=== PATIENT | female | born 1945 | race Caucasian/White ===

== ENCOUNTER 2016-11-03 20:51 | Observation (INO) | payer MEDICARE ==
[2016-11-03] MEDS ORDERED: Glucagon,Human Recombinant 1 MG Vial IM ONE (21:42)
[2016-11-03] MEDS ORDERED: Sodium Chloride 0.9% 10 ML Syringe FLUSH PRN (21:42)
[2016-11-03] MEDS ORDERED: Glucagon,Human Recombinant 1 MG Vial IV PRN ×2 (21:43→21:46)
[2016-11-03] MEDS ORDERED: Sodium Chloride 0.9% 1,000 ML IV SCH (22:00)
[2016-11-03] MEDS ORDERED: LORazepam 2 MG/ML MDV IVPUSH ONE (23:15)
--- NOTE | 2016-11-03 23:27 | EDM.PDOC ---
ED HPI GENERAL MEDICAL PROBLEM - General Chief Complaint: Gastrointestinal Problem Stated Complaint: FOOD STUCK IN THROAT Time Seen by Provider: 11/03/16 21:31 Source of Information: Reports: Patient History Limitations: Reports: No Limitations - History of Present Illness INITIAL COMMENTS - FREE TEXT/NARRATIVE: food stuck in throat; this is a 71 year old female presents to ER with her . Mrs. Rodríguez reports was eating steak and toast this evening, when a piece of steak got caught in her throat. She had about 2 hours of hard vomiting , feels like it is partially discharged the food, but feels like it is stuck in bottom of her throat. She is having frequent burps, throat pain and anxiety. past hx of food obstruction, last event 2 years ago reports increase choking on foods the past two months. Onset: Sudden Duration: Hour(s): Location: Reports: Neck, Abdomen Quality: Reports: Same as Previous Episode Improves with: Reports: None Worsens with: Reports: Eating Associated Symptoms: Reports: Nausea/Vomiting Epigastric Pain Score (Numeric/FACES): 8 - Related Data Allergies Allergy/AdvReac Type Severity Reaction Status Date / Time acetaminophen [From Percocet] Allergy Itching Verified 11/03/16 21:10 codeine Allergy Itching Verified 11/03/16 21:10 indomethacin [From Indocin] Allergy Itching Verified 11/03/16 21:10 indomethacin sodium Allergy Itching Verified 11/03/16 21:10 [From Indocin] morphine Allergy Other Verified 11/03/16 21:10 propoxyphene napsylate Allergy Itching Verified 11/03/16 21:10 [From Darvon-N] oxycodone HCl [From Percocet] AdvReac Confusion Verified 11/03/16 21:10 tape AdvReac Blisters Uncoded 07/01/15 08:26 Home Meds: Home Meds Cyclobenzaprine [Flexeril] 10 mg PO BEDTIME PRN 04/21/13 [History] Omeprazole [Prilosec] 40 mg PO DAILY 04/21/13 [History] SUMAtriptan [Imitrex] 50 mg PO ASDIRECTED PRN 04/21/13 [History] Losartan [Cozaar] 50 mg PO DAILY 07/22/14 [History] Calcium Citrate 500 mg PO BID #60 tablet 07/24/14 [Rx] Cholecalciferol (Vitamin D3) [Vitamin D3] 1,000 unit PO DAILY 08/08/14 [History] Multivitamin with Minerals [Multiple Vitamin] 1 tab PO DAILY 08/08/14 [History] 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] 10 mg PO ASDIRECTED PRN 12/04/14 [History] Past Medical History HEENT History: Reports: Impaired Vision Cardiovascular History: Reports: Hypertension Gastrointestinal History: Reports: Chronic Constipation, GERD, Other (See Below) Other Gastrointestinal History: gastric ulcer Genitourinary History: Reports: UTI, Recurrent 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: 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: Musculoskeletal History: Reports: Arthritis, Neck Pain, Chronic, Other (See Below) Other Musculoskeletal History: back surgery Neurological History: Reports: Headaches, Chronic, Migraines Other Dermatologic History: open and draining on abdomen - Infectious Disease History Infectious Disease History: Reports: Chicken Pox, Measles - Past Surgical History HEENT Surgical History: Reports: Cataract Surgery GI Surgical History: Reports: Cholecystectomy, Other (See Below) Endocrine Surgical History: Reports: Other (See Below) Neurological Surgical History: Reports: Other (See Below) Musculoskeletal Surgical History: Reports: Knee Replacement Social & Family History - Tobacco Use Smoking Status *Q: Current Status Unknown Second Hand Smoke Exposure: No - Caffeine Use Caffeine Use: Reports: Coffee - Alcohol Use Days Per Week of Alcohol Use: 0 - Recreational Drug Use Recreational Drug Use: No - Living Situation & Occupation Living situation: Reports: (lives with in [place], [place].) ED ROS GENERAL - Review of Systems Review Of Systems: See Below Constitutional: Reports: No Symptoms HEENT: Reports: Throat Pain Respiratory: Reports: No Symptoms Cardiovascular: Reports: No Symptoms Endocrine: Reports: No Symptoms GI/Abdominal: Reports: Abdominal Pain (choking event), Difficulty Swallowing ( partial food obstruction) : Reports: No Symptoms Musculoskeletal: Reports: No Symptoms Skin: Reports: No Symptoms Neurological: Reports: No Symptoms Psychiatric: Reports: Anxiety Hematologic/Lymphatic: Reports: No Symptoms Immunologic: Reports: No Symptoms ED EXAM, GI/ABD - Physical Exam Exam: See Below Exam Limited By: No Limitations General Appearance: Alert, WD/WN, No Apparent Distress Eyes: Bilateral: Normal Appearance Ears: Normal External Exam Nose: Normal Inspection Throat/Mouth: Normal Inspection, Normal Lips, Normal Teeth, Normal Gums, Normal Oropharynx, Normal Voice, No Airway Compromise Head: Atraumatic, Normocephalic Neck: Normal Inspection, Supple, Non-Tender, Full Range of Motion Respiratory/Chest: No Respiratory Distress, Lungs Clear, Normal Breath Sounds, No Accessory Muscle Use, Chest Non-Tender Cardiovascular: Regular Rate, Rhythm, No Murmur GI/Abdominal: Normal Bowel Sounds, Soft, Tenderness (epigastric area) (Female) Exam: Deferred Rectal (Female) Exam: Deferred Back Exam: Normal Inspection Extremities: Normal Inspection, Normal Range of Motion, Non-Tender, No Pedal Edema Neurological: Alert, Oriented, CN II-XII Intact, Normal Cognition, Normal Gait, Normal Reflexes, No Motor/Sensory Deficits Psychiatric: Normal Affect, Normal Mood Skin Exam: Warm, Dry, Intact, Normal Color, No Rash Lymphatic: No Adenopathy Course - Vital Signs Last Recorded V/S: Last Vital Signs Temp 37.4 C 11/03/16 21:06 Pulse 68 11/03/16 22:11 Resp 17 11/03/16 22:11 BP 187/101 H 11/03/16 22:11 Pulse Ox 95 11/03/16 22:11 - Orders/Labs/Meds Orders: Active Orders 24 hr Category Date Time Status Patient Status Manage Transfer [TRANSFER] Routine ADT 11/03/16 22:57 Active Sodium Chloride 0.9% [Normal Saline] 1,000 ml Med 11/03/16 22:00 Active IV ASDIRECTED Sodium Chloride 0.9% [Saline Flush] Med 11/03/16 21:42 Active 10 ml FLUSH ASDIRECTED PRN Saline Lock Insert [OM.PC] Routine Oth 11/03/16 21:42 Ordered Resuscitation Status Routine Resus Stat 11/03/16 23:04 Ordered Medication Orders Sodium Chloride (Normal Saline) 1,000 mls @ 250 mls/hr IV ASDIRECTED JORGE LUIS Last Admin: 11/03/16 21:52 Dose: 250 mls/hr Sodium Chloride (Saline Flush) 10 ml FLUSH ASDIRECTED PRN PRN Reason: Keep Vein Open Last Admin: 11/03/16 22:02 Dose: 10 ml Meds: Medications Generic Name Dose Route Start Last Admin Trade Name Freq PRN Reason Stop Dose Admin Sodium Chloride 1,000 mls @ 250 mls/hr 11/03/16 22:00 11/03/16 21:52 Normal Saline IV 250 mls/hr ASDIRECTED JORGE LUIS Administration Sodium Chloride 10 ml 11/03/16 21:42 11/03/16 22:02 Saline Flush FLUSH 10 ml ASDIRECTED PRN Administration Keep Vein Open Discontinued Medications Generic Name Dose Route Start Last Admin Trade Name Freq PRN Reason Stop Dose Admin Glucagon 1 mg 11/03/16 21:42 11/03/16 22:08 Glucagen IM 11/03/16 21:43 Not Given ONETIME ONE Glucagon 1 mg 11/03/16 21:43 11/03/16 22:03 Glucagen IV 11/03/16 21:44 1 mg ONETIME PRN Administration Abdominal Pain Glucagon 1 mg 11/03/16 21:46 Glucagen IV 11/03/16 21:47 ONETIME PRN Other Lorazepam 1 mg 11/03/16 23:15 Ativan IVPUSH 11/03/16 23:16 ONETIME ONE - Re-Assessments/Exams Free Text/Narrative Re-Assessment/Exam: 11/03/16 23:31 tried course of Glucagon 1mg IV and coke to resolve food bolus, feel slight improvement, but feel like food is still lodged in throat. IV Normal saline consulted with Dr. Ottoniel Wheat, -recommendation admit Observation Status, keep NPO, may have ice chips, will plan to do EGD in am. 11/03/16 23:35 Departure - Departure Time of Disposition: 23:35 Disposition: Admitted As Inpatient 64 Condition: Good Clinical Impression: Esophageal obstruction due to food impaction - Discharge Information Forms: ED Department Discharge - My Orders Last 24 Hours: My Active Orders 11/03/16 21:42 Sodium Chloride 0.9% [Saline Flush] 10 ml FLUSH ASDIRECTED PRN Saline Lock Insert [OM.PC] Routine 11/03/16 22:00 Sodium Chloride 0.9% [Normal Saline] 1,000 ml IV ASDIRECTED 11/03/16 22:57 Patient Status Manage Transfer [TRANSFER] Routine 11/03/16 23:04 Resuscitation Status Routine - Assessment/Plan Last 24 Hours: My Active Orders 11/03/16 21:42 Sodium Chloride 0.9% [Saline Flush] 10 ml FLUSH ASDIRECTED PRN Saline Lock Insert [OM.PC] Routine 11/03/16 22:00 Sodium Chloride 0.9% [Normal Saline] 1,000 ml IV ASDIRECTED 11/03/16 22:57 Patient Status Manage Transfer [TRANSFER] Routine 11/03/16 23:04 Resuscitation Status Routine
[2016-11-04] MEDS ORDERED: Sodium Chloride 0.9% 1,000 ML IV SCH (00:10)
[2016-11-04] MEDS ORDERED: Ondansetron 4 MG/2 ML SDV IV PRN (00:10)
[2016-11-04] MEDS ORDERED: HYDROmorphone 0.5 MG/0.5 ML Syringe IVPUSH PRN (00:10)
[2016-11-04] MEDS ORDERED: LORazepam 2 MG/ML MDV IVPUSH PRN ×2 (00:10→07:25)
[2016-11-04] MEDS ORDERED: Pantoprazole 40 MG Vial IVPUSH SCH ×2 (00:10→21:00)
[2016-11-04] MEDS ORDERED: Midazolam 1 MG/ML 2 ML SDV ONE (06:50)
[2016-11-04] MEDS ORDERED: Propofol 200 MG/20 ML SDV ONE (06:50)
[2016-11-04] MEDS ORDERED: fentaNYL 100 MCG/2 ML SDV ONE (06:50)
[2016-11-04] MEDS ORDERED: Glycopyrrolate 0.2 MG/ML 2 ML SYRINGE IVPUSH ONE (07:28)
[2016-11-04] MEDS ORDERED: Pantoprazole 40 MG Vial IVPUSH ONE (07:35)
--- NOTE | 2016-11-04 08:06 | PCM.HP ---
H&P History of Present Illness - General Date of Service: 11/04/16 Admit Problem/Dx: Admission Diagnosis/Problem Admission Diagnosis/Problem Esophageal dysphagia Source of Information: Patient History Limitations: Reports: No Limitations - History of Present Illness Initial Comments - Free Text/Narative: Odette states for the past 2 years she has had some difficulty swallowing and will get food stuck. She states she can usually get it up on her own with the exception of last night. She was admitted through ED and she thinks the piece of steak she got stuck went down. Continues to have pain in her mid epigastric area. She is NPO. Location: Reports: Abdomen (mid epigastric area) Quality: Reports: Dull, Pressure Severity: Mild Improves with: Reports: None Worsens with: Reports: None Associated Symptoms: Reports: No Other Symptoms Epigastric Pain Score (Numeric/FACES): 2 - Related Data Allergies/Adverse Reactions: Allergies Allergy/AdvReac Type Severity Reaction Status Date / Time codeine Allergy Itching Verified 11/03/16 21:10 indomethacin sodium Allergy Itching Verified 11/03/16 21:10 [From Indocin] morphine Allergy Other Verified 11/03/16 21:10 propoxyphene napsylate Allergy Itching Verified 11/03/16 21:10 [From Darvon-N] oxycodone HCl [From Percocet] AdvReac Confusion Verified 11/03/16 21:10 tape AdvReac Blisters Uncoded 07/01/15 08:26 Home Medications: Home Meds SUMAtriptan [Imitrex] 50 mg PO ASDIRECTED PRN 04/21/13 [History] Losartan [Cozaar] 50 mg PO DAILY 07/22/14 [History] Past Medical History HEENT History: Reports: Impaired Vision Cardiovascular History: Reports: Hypertension Gastrointestinal History: Reports: Chronic Constipation, GERD, Other (See Below) Other Gastrointestinal History: gastric ulcer Genitourinary History: Reports: UTI, Recurrent 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: Musculoskeletal History: Reports: Arthritis, Neck Pain, Chronic, Other (See Below) Other Musculoskeletal History: back surgery Neurological History: Reports: Headaches, Chronic, Migraines Other Dermatologic History: open and draining on abdomen - Infectious Disease History Infectious Disease History: Reports: Chicken Pox, Measles - Past Surgical History HEENT Surgical History: Reports: Cataract Surgery GI Surgical History: Reports: Cholecystectomy, Other (See Below) Endocrine Surgical History: Reports: Other (See Below) Neurological Surgical History: Reports: Other (See Below) Musculoskeletal Surgical History: Reports: Knee Replacement Social & Family History - Tobacco Use Smoking Status *Q: Never Smoker Second Hand Smoke Exposure: No - Caffeine Use Caffeine Use: Reports: None - Alcohol Use Days Per Week of Alcohol Use: 0 - Recreational Drug Use Recreational Drug Use: No - Living Situation & Occupation Living situation: Reports: (lives with in [place], [place].) H&P Review of Systems - Review of Systems: Review Of Systems: See Below General: Reports: No Symptoms HEENT: Reports: No Symptoms Pulmonary: Reports: No Symptoms Cardiovascular: Reports: No Symptoms Gastrointestinal: Reports: Abdominal Pain (2/10 in mid epigastric area) Genitourinary: Reports: No Symptoms Musculoskeletal: Reports: No Symptoms Skin: Reports: No Symptoms Psychiatric: Reports: No Symptoms Neurological: Reports: No Symptoms Hematologic/Lymphatic: Reports: No Symptoms Immunologic: Reports: No Symptoms Exam - Exam Exam: See Below - Vital Signs Vital Signs: Last Vital Signs Temp 96.8 F 11/04/16 07:50 Pulse 69 11/04/16 07:50 Resp 14 11/04/16 07:50 BP 119/63 11/04/16 07:50 Pulse Ox 97 11/04/16 07:50 Weight: 170 lb - Exam Quality Assessment: DVT Prophylaxis General: Alert, Oriented, Cooperative, Mild Distress HEENT: PERRLA, Conjunctiva Clear Neck: Supple, Trachea Midline Lungs: Clear to Auscultation, Normal Respiratory Effort Cardiovascular: Regular Rate, Regular Rhythm Abdomen: Soft, Other (minimal tenderness in the mid epigastric area) (Female) Exam: Deferred Rectal (Female) Exam: Deferred Back Exam: Normal Inspection, Full Range of Motion Extremities: Normal Inspection Skin: Warm, Dry, Intact Neurological: Cranial Nerves Intact, Reflexes Equal Bilateral Neuro Extensive - Mental Status: Alert, Oriented x3, Normal Mood/Affect Neuro Extensive - Motor, Sensory, Reflexes: CN II-XII Intact, Normal Gait, Normal Reflexes Psychiatric: Alert, Normal Affect, Normal Mood - Patient Data Lab Results Last 24 hrs: Laboratory Results - last 24 hr 11/04/16 11/04/16 Range/Units 04:30 04:30 WBC 7.6 (4.5-11.0) K/uL RBC 4.20 (3.30-5.50) M/uL Hgb 12.4 D (12.0-15.0) g/dL Hct 37.6 (36.0-48.0) % MCV 90 (80-98) fL MCH 30 (27-31) pg MCHC 33 (32-36) % Plt Count 245 (150-400) K/uL Neut % (Auto) 54 (36-66) % Lymph % (Auto) 33 (24-44) % [place] % (Auto) 6 (2-6) % Eos % (Auto) 6 H (2-4) % Baso % (Auto) 1 (0-1) % Sodium 142 (140-148) mmol/L Potassium 3.9 (3.6-5.2) mmol/L Chloride 109 H (100-108) mmol/L Carbon Dioxide 27 (21-32) mmol/L Anion Gap 9.9 (5.0-14.0) mmol/L BUN 14 D (7-18) mg/dL Creatinine 0.9 D (0.6-1.0) mg/dL Est Cr Clr Drug Dosing 56.16 mL/min Estimated GFR (MDRD) > 60 (>60) Glucose 87 (74-106) mg/dL Calcium 8.1 L (8.5-10.1) mg/dL Result Diagrams: 11/04/16 04:30 11/04/16 04:30 *Q Meaningful Use (ADM) - VTE *Q VTE Criteria *Q: - Stroke *Q Stroke Criteria *Q: - AMI *Q AMI Criteria *Q: Problem List Initiated/Reviewed/Updated: Yes Orders Last 24hrs: Active Orders 24 hr Category Date Time Status Patient Status [ADT] Routine ADT 11/04/16 00:10 Active Ambulate [RC] QID Care 11/04/16 00:10 Active Intake and Output [RC] QSHIFT Care 11/04/16 00:10 Active May Shower [RC] ASDIRECTED Care 11/04/16 00:10 Active Notify Provider Vital Signs [RC] ASDIRECTED Care 11/04/16 00:10 Active Oxygen Therapy [RC] PRN Care 11/04/16 00:10 Active Up ad Wendy [RC] ASDIRECTED Care 11/04/16 00:10 Active VTE/DVT Education [RC] Per Unit Routine Care 11/04/16 00:10 Active Verify Patient Consent Obtain [RC] ASDIRECTED Care 11/04/16 07:27 Active Vital Signs [RC] Q4H Care 11/04/16 00:10 Active Nothing per Oral After Midnight Diet [DIET] Diet 11/04/16 Breakfast Active Nothing per Oral Now Diet [DIET] Diet 11/04/16 Breakfast Active HYDROmorphone [Dilaudid] Med 11/04/16 00:10 Active 0.5 mg IVPUSH Q2H PRN LORazepam [Ativan] Med 11/04/16 07:25 Active 0.5 - 1 mg IVPUSH Q2H PRN Ondansetron [Zofran] Med 11/04/16 00:10 Active 4 mg IV Q4H PRN Pantoprazole [ProTONIX IV] Med 11/04/16 21:00 Active 40 mg IVPUSH BEDTIME Sodium Chloride 0.9% [Normal Saline] 1,000 ml Med 11/04/16 00:10 Active IV ASDIRECTED Resuscitation Status Routine Resus Stat 11/03/16 23:04 Ordered Medication Orders Hydromorphone HCl (Dilaudid) 0.5 mg IVPUSH Q2H PRN PRN Reason: Abdominal Pain Sodium Chloride (Normal Saline) 1,000 mls @ 125 mls/hr IV ASDIRECTED JORGE LUIS Last Admin: 11/04/16 03:45 Dose: 125 mls/hr Lorazepam (Ativan) 0.5 - 1 mg IVPUSH Q2H PRN PRN Reason: Anxiety Ondansetron HCl (Zofran) 4 mg IV Q4H PRN PRN Reason: Nausea/Vomiting Pantoprazole Sodium (Protonix Iv) 40 mg IVPUSH BEDTIME JORGE LUIS Sodium Chloride (Saline Flush) 10 ml FLUSH ASDIRECTED PRN PRN Reason: Keep Vein Open Last Admin: 11/03/16 22:02 Dose: 10 ml Assessment/Plan Comment:: Dysphagia Secondary to getting a piece of steak stuck Plan: EGD with possible removal of foreign body and possible dilation - Case to follow - IV Sedation - Manoj Wheat MD Rx Robinul 0.4 mg IV admission specialist to OR Admit to Observation - plan discharge after EGD Cornelia Redmond
[2016-11-04 13:11] VITALS: BP 130/78
--- NOTE | 2016-11-04 20:35 | PCM.DCSUM1 ---
Discharge Summary - Hospital Course Brief History: Odette was admitted on 11/03/16 after she was eating and got a piece of steak caught in her esophagus. She has been having trouble with food getting stuck for the past 2 years. Usually if something gets stuck she can manage at home by throwing up and drinking water until it goes down. EGD was done on 11/04/16 by Manoj Wheat MD. Patient was able to eat a full liquid diet and was able to be discharged to home. - Discharge Data Discharge Date: 11/04/16 Discharge Disposition: Home, Self-Care 01 Condition: Good - Patient Summary/Data Operative Procedure(s) Performed: EGD with Dilation and Removal of foreign body and biopsies. Planned Operative Procedure(s) after DC: EGD Scheduled in 1 month with Manoj Wheat MD - Patient Instructions Diet: Drink 8-10+ Glasses/Day, Full Liquid Diet (for 5 days then progress to soft ) Activity: As Tolerated Showering/Bathing: May Shower Notify Provider of: Increased Pain, Nausea and/or Vomiting - Discharge Plan Prescriptions/Med Rec: Pantoprazole Sodium [Protonix] 40 mg PO BID #60 tablet. [place] Medications: Home Meds SUMAtriptan [Imitrex] 50 mg PO ASDIRECTED PRN 04/21/13 [History] Losartan [Cozaar] 50 mg PO DAILY 07/22/14 [History] Pantoprazole Sodium [Protonix] 40 mg PO BID #60 tablet. 11/04/16 [Rx] Referrals: Manoj Wheat MD [Physician] - 11/10/16 12:30 pm - Discharge Summary/Plan Comment DC Time >30 min.: Yes - General Info Date of Service: 11/04/16 Functional Status: Reports: tolerating diet - Review of Systems General: Reports: Fatigue HEENT: Reports: no symptoms Pulmonary: Reports: no symptoms Cardiovascular: Reports: No Symptoms Gastrointestinal: Reports: Abdominal pain (resolved), Difficulty swallowing ( resolved ) Genitourinary: Reports: no symptoms Musculoskeletal: Reports: no symptoms Skin: Reports: no symptoms Neurological: Reports: No Symptoms Psychiatric: Reports: no symptoms - Patient Data Vitals - Most Recent: Last Vital Signs Temp 96.8 F 11/04/16 11:00 Pulse 60 11/04/16 11:00 Resp 16 11/04/16 11:00 BP 130/78 11/04/16 11:00 Pulse Ox 95 11/04/16 11:00 Weight - Most Recent: 160 lb 0.008 oz I&O - Last 24 hours: Intake & Output 11/04/16 11/04/16 11/04/16 06:59 14:59 22:59 Intake Total 850 1275 Balance 850 1275 Lab Results - Last 24 hrs: Laboratory Results - last 24 hr 11/04/16 11/04/16 Range/Units 04:30 04:30 WBC 7.6 (4.5-11.0) K/uL RBC 4.20 (3.30-5.50) M/uL Hgb 12.4 D (12.0-15.0) g/dL Hct 37.6 (36.0-48.0) % MCV 90 (80-98) fL MCH 30 (27-31) pg MCHC 33 (32-36) % Plt Count 245 (150-400) K/uL Neut % (Auto) 54 (36-66) % Lymph % (Auto) 33 (24-44) % [place] % (Auto) 6 (2-6) % Eos % (Auto) 6 H (2-4) % Baso % (Auto) 1 (0-1) % Sodium 142 (140-148) mmol/L Potassium 3.9 (3.6-5.2) mmol/L Chloride 109 H (100-108) mmol/L Carbon Dioxide 27 (21-32) mmol/L Anion Gap 9.9 (5.0-14.0) mmol/L BUN 14 D (7-18) mg/dL Creatinine 0.9 D (0.6-1.0) mg/dL Est Cr Clr Drug Dosing 56.16 mL/min Estimated GFR (MDRD) > 60 (>60) Glucose 87 (74-106) mg/dL Calcium 8.1 L (8.5-10.1) mg/dL Med Orders - Current: Current Medications Discontinued Medications Fentanyl (Sublimaze) Confirm Administered Dose 100 mcg .ROUTE .STK-MED ONE Stop: 11/04/16 06:51 Glucagon (Glucagen) 1 mg IM ONETIME ONE Stop: 11/03/16 21:43 Last Admin: 11/03/16 22:08 Dose: Not Given Glucagon (Glucagen) 1 mg IV ONETIME PRN PRN Reason: Abdominal Pain Stop: 11/03/16 21:44 Last Admin: 11/03/16 22:03 Dose: 1 mg Glucagon (Glucagen) 1 mg IV ONETIME PRN PRN Reason: Other Stop: 11/03/16 21:47 Glycopyrrolate (Robinul) 0.4 mg IVPUSH ONCALL ONE Stop: 11/04/16 07:29 Hydromorphone HCl (Dilaudid) 0.5 mg IVPUSH Q2H PRN PRN Reason: Abdominal Pain Sodium Chloride (Normal Saline) 1,000 mls @ 250 mls/hr IV ASDIRECTED [facility] Last Admin: 11/03/16 21:52 Dose: 250 mls/hr Sodium Chloride (Normal Saline) 1,000 mls @ 125 mls/hr IV ASDIRECTED [facility] Last Admin: 11/04/16 03:45 Dose: 125 mls/hr Lorazepam (Ativan) 1 mg IVPUSH ONETIME ONE Stop: 11/03/16 23:16 Last Admin: 11/04/16 00:22 Dose: 1 mg Lorazepam (Ativan) 0.5 - 1 mg IVPUSH Q4H PRN PRN Reason: Anxiety Lorazepam (Ativan) 0.5 - 1 mg IVPUSH Q2H PRN PRN Reason: Anxiety Midazolam HCl (Versed 1 Mg/Ml) Confirm Administered Dose 2 mg .ROUTE .STK-MED ONE Stop: 11/04/16 06:51 Ondansetron HCl (Zofran) 4 mg IV Q4H PRN PRN Reason: Nausea/Vomiting Pantoprazole Sodium (Protonix Iv) 40 mg IVPUSH DAILY [facility] Last Admin: 11/04/16 01:18 Dose: 40 mg Pantoprazole Sodium (Protonix Iv) 40 mg IVPUSH ONETIME ONE Stop: 11/04/16 07:36 Last Admin: 11/04/16 07:41 Dose: 40 mg Pantoprazole Sodium (Protonix Iv) 40 mg IVPUSH BEDTIME [facility] Propofol (Diprivan 20 Ml) Confirm Administered Dose 200 mg .ROUTE .STK-MED ONE Stop: 11/04/16 06:51 Sodium Chloride (Saline Flush) 10 ml FLUSH ASDIRECTED PRN PRN Reason: Keep Vein Open Last Admin: 11/03/16 22:02 Dose: 10 ml - Exam Quality Assessment: Reports: DVT prophylaxis General: Reports: alert, oriented, cooperative, mild distress HEENT: Reports: Pupils equal, Pupils reactive Neck: Reports: supple Lungs: Reports: Clear to auscultation, Normal respiratory effort Cardiovascular: Reports: Regular Rate, Regular Rhythm Abdomen: Reports: soft, no tenderness, no distension (Female) Exam: Deferred Rectal (Female) Exam: Deferred Back Exam: Reports: Normal Inspection, Full Range of Motion Extremities: Reports: no edema Skin: Reports: warm, dry, intact Neurological: Reports: no new focal deficit Psy/Mental Status: Reports: alert, normal affect, normal mood *Q Meaningful Use (DIS) - VTE *Q VTE Criteria *Q: - Stroke *Q Stroke Criteria *Q: - AMI *Q AMI Criteria *Q:
--- NOTE | 2016-11-12 09:48 | OR ---
DATE OF PROCEDURE: 11/04/2016 PREOPERATIVE DIAGNOSIS: Obstructing food bolus at the distal esophagus. POSTOPERATIVE DIAGNOSES: 1. Obstructing food bolus at the distal esophagus. 2. Marked acute inflammation at esophagogastric junction with small hiatal hernia. 3. Pre-pyloric gastric ulcer. OPERATIVE PROCEDURES: Esophagogastroduodenoscopy with: 1. Removal of esophageal foreign body (52639). 2. Biopsy of pre-pyloric ulcer. 3. Biopsies of esophagogastric junction ([id number]). ANESTHESIA: IV sedation. INDICATION FOR PROCEDURE: This is a 71-year-old female presenting with a repeat food impaction, and this is the third time she has had the operative procedure for removal of esophageal foreign body. She presently has not been on any antisecretory medication. The plan is to proceed with upper GI endoscopy with removal of foreign body and other procedures as indicated. Potential risk including bleeding and perforation were discussed, and the patient wishes to proceed. DETAILS OF PROCEDURE: The patient was taken to the operating room and placed in a left lateral decubitus position. IV sedation was administered, after which the upper GI endoscope was passed orally through the length of the esophagus. The patient was noted to have a small amount of salivary type food within the esophagus, which was evacuated. The food bolus was then pushed downward through the esophagogastric junction and into the stomach, thus successfully removing it from the point of impaction. The area of the EG junction was acutely inflamed and edematous. Some of this may have been related to the food bolus, but this may have also been significantly present prior to it and likely part of the reason for the food getting caught. Apart from that, the patient had a shallow pre-pyloric gastric ulcer. The remainder of the gastroduodenal exams were unremarkable. At this point, biopsies were obtained from the pre-pyloric ulcer and sent for histologic evaluation and also then biopsies of the esophagogastric junction obtained. Minimal bleeding from the biopsy sites was seen and the procedure then concluded. The patient was taken to the recovery room in satisfactory condition. The patient will be started on Protonix 40 mg IV in the recovery room and then 40 mg daily, and plan to repeat the upper endoscopy in roughly 1 month to make sure that the gastric ulcer has healed. Otherwise, we will see how we are doing with the amount of inflammation at the EG junction and perhaps perform esophageal dilation at that time as well. Manoj Wheat MD /[id number]
== END 2016-11-04 13:50 | disposition home or self-care (01) ==
LOC: JP.ED 20:51 → JP.MS 22:57
PROVIDERS: ADMIT Surgery; ATTEND Surgery
PROC: 0DC48ZZ Extirpation of Matter from Esophagogastric Junction, Via Natural or Artificial Opening Endoscopic (ICD-10-PCS; principal; 2016-11-04)
PROC: 0DB48ZX Excision of Esophagogastric Junction, Via Natural or Artificial Opening Endoscopic, Diagnostic (ICD-10-PCS; 2016-11-04)
PROC: 0DB68ZX Excision of Stomach, Via Natural or Artificial Opening Endoscopic, Diagnostic (ICD-10-PCS; 2016-11-04)
DX: T18.128A Food in esophagus causing other injury, initial encounter (principal); X58.XXXA Exposure to other specified factors, initial encounter; K20.8 Other esophagitis; K29.50 Unspecified chronic gastritis without bleeding; K25.7 Chronic gastric ulcer without hemorrhage or perforation; K44.9 Diaphragmatic hernia without obstruction or gangrene; I10 Essential (primary) hypertension; K59.09 Other constipation; M19.90 Unspecified osteoarthritis, unspecified site; Z96.659 Presence of unspecified artificial knee joint
CPT/HCPCS: 36415; 43239; 43247; 80048; 85025; 88305; 88342; 96361; 96374; 96375; 96376; 99284; C9113; G0378; J1610; J2060; J2250; J2704; J3010; J7040; J7050

== ENCOUNTER 2016-12-02 05:46 | Day surgery (SDC) | payer MEDICARE ==
[2016-12-02] MEDS ORDERED: Dextrose 5%-Lactated Ringers 1,000 ML IV SCH (06:15)
[2016-12-02] MEDS ORDERED: Glycopyrrolate 0.2 MG/ML 2 ML SDV IVPUSH SCH (07:15)
[2016-12-02] MEDS ORDERED: fentaNYL 100 MCG/2 ML SDV ONE (07:16)
[2016-12-02] MEDS ORDERED: Propofol 200 MG/20 ML SDV ONE (07:16)
[2016-12-02 08:26] VITALS: BP 146/84
--- NOTE | 2016-12-05 14:32 | OR ---
DATE OF PROCEDURE: 12/02/2016 PREOPERATIVE DIAGNOSES: 1. History of recently identified gastric ulcer. 2. History of gastroesophageal reflux disease associated with stricturing of the esophagogastric junction. POSTOPERATIVE DIAGNOSES: 1. Healed gastric ulcer with persistent pre-pyloric erosive gastritis. 2. Mild esophageal stricture. OPERATIVE PROCEDURE: Esophagogastroduodenoscopy with; 1. Biopsies of antrum for CLOtest (83774). 2. Dilation of esophagus (90742). ANESTHESIA: IV sedation. INDICATIONS FOR PROCEDURE: This is a 71-year-old female presenting with a history of two upper GI problems. One was a recently identified gastric ulcer and the other was history of dysphagia referable to the distal esophagus with recent fluid bolus becoming impacted. The patient is here for followup of those two problems with biopsies and/or dilation as indicated to be undertaken via the upper GI endoscope. Potential risks of the procedure including bleeding and perforation were discussed, and the patient wishes to proceed. DETAILS OF PROCEDURE: The patient was taken to the operating room and placed in a left lateral decubitus position. IV sedation was administered, after which the upper GI endoscope was passed orally through the length of the esophagus and into the stomach with retroflexion view of the fundus, thereafter through the pyloric channel and into the duodenum to roughly the junction of the third and fourth portions. The area of the esophagogastric junction at this point showed minimal inflammation. There was some mild narrowing at the EG junction, and at that point, the decision was made to subsequently dilate that area. As one passed through the stomach, the gastric ulcers were noted now to be healed. There was some scattered erosive gastritis within the pre-pyloric area, but the ulceration that had been seen earlier had healed. The pyloric channel and the visualized portion of the duodenum were unremarkable. At this point, biopsies were obtained once again from the antrum to check for H. pylori by means of a CLOtest. Minimal bleeding from the biopsy site was seen. Following this, then the dilator for the Savary dilations system was placed into the stomach and the gastroscope was withdrawn. A 54-Japanese Savary dilator was then passed over the wire and held in position for 30 seconds. After that, the wire and dilator were removed. The patient was taken to the recovery room in satisfactory condition. The patient will be following with Dr. Killian on a p.r.n. basis. This is someone who probably should be on proton pump inhibitor indefinitely due to her problems with recurrent stricturing associated with reflux esophagitis as well as some persistence of the erosive gastritis despite the proton pump inhibitor use. If the CLOtest is positive, we will contact the patient, otherwise followup will be with Dr. Killian as needed. Manoj Wheat MD /[id number]
== END 2016-12-02 08:50 | disposition home or self-care (01) ==
LOC: JP.SDS 05:46
PROVIDERS: ATTEND Surgery
DX: K25.9 Gastric ulcer, unspecified as acute or chronic, without hemorrhage or perforation (principal); K29.00 Acute gastritis without bleeding; K21.0 Gastro-esophageal reflux disease with esophagitis; K91.89 Other postprocedural complications and disorders of digestive system; G47.33 Obstructive sleep apnea (adult) (pediatric); I10 Essential (primary) hypertension; Z88.8 Allergy status to other drugs, medicaments and biological substances; Z91.09 Other allergy status, other than to drugs and biological substances
CPT/HCPCS: 43239; 43248; 87081; J2704; J3010; J7042; J3490

== ENCOUNTER → 2018-10-18 | Outpatient (CLI) | payer MEDICARE ==
[2018-10-18 11:08] VITALS: BP 159/87; PULSE 57
--- NOTE | 2018-10-18 16:52 | STRESS ---
DATE OF SERVICE: 10/18/2018 PROPOSED PROCEDURE: Exercise Cardiolite stress test, this was changed to a Lexiscan stress test. INDICATION FOR STRESS TEST: Dyspnea on exertion. DESCRIPTION OF PROCEDURE: Odette is a 73-year-old female, here for an outpatient stress test. Baseline EKG shows a normal sinus rhythm with a normal axis and normal RS transition. Baseline blood pressure is 159/87 with pulse of 72. Initial portion of the stress test was administered per the Edy protocol. The patient was only able to exercise for 2 minutes before she had to stop the stress test and she had only reached heart rate of 120 with her goal heart rate being 123. The stress test was stopped because of fatigue and weakness. The stress test at this point was transitioned to a Lexiscan stress test. The Lexiscan and Myoview were injected per the protocol after a short recovery period. Review of the continuous EKG monitoring showed no changes in the ST segments or T-waves following the stress or recovery portion of the test. EKG remains at baseline. The patient's blood pressure dipped slightly after Lexiscan injection with the lowest reading of 128/73 at the 3- minute mercedes of recovery. Heart rate salvatore from 62 to 81 at the 2-minute mercedes of recovery and then slowly decreased. At the completion of the test, her blood pressure was 142/82 and her pulse was 73. Review of the utility locate technician's notes suggests that the patient had moderate flushing, heart racing, and slight chest pressure. Symptoms resolved in the recovery phase without reversal medication. IMPRESSION: Negative EKG portion of the stress test. The patient did not experience dyspnea. The stress test was converted from a treadmill to a Lexiscan because the patient became weak and fatigued while exercising on the treadmill. The nuclear medicine portion will be interpreted separately. Robert Gonzalez MD /[id number]
--- NOTE | 2018-10-18 20:14 | CRLNM ---
MYOCARDIAL PERFUSION SCAN, 10/18/2018 CLINICAL HISTORY: 73-year-old female. Dyspnea. Coronary artery disease. Hypertension. Hypercholesteremia. Height: 5 feet 6.5 inches. Weight: 168 pounds. TECHNIQUE: (Resting SPECT and Stress Gated SPECT with wall motion and ejection fraction) Stress: Pharmacologic - Lexiscan (0.4 mg) (IV) Dose (Stress/Rest): 28 mCi / 9.5 mCi Tc-99m Myoview (IV) Comparison: Correlation is made with a previous myocardial perfusion scan report from [facility] in [facility] dated 01/23/2010. FINDINGS: There is good uptake of activity by the left ventricle. No left ventricular enlargement is noted. There is a small fixed defect in the inferior wall, worse at rest. This is likely related to soft tissue attenuation. There are no other significant fixed or reversible defects identified. Gated images demonstrate a normal left ventricular ejection fraction of 76 percent. No regional wall motion abnormalities are identified. When correlated with the previous myocardial perfusion scan report 01/23/2010, a previously suggested infarct with periinfarct ischemia in the inferolateral wall is not convincingly demonstrated today. IMPRESSION: 1)No evidence of significant myocardial ischemia or infarction. 2)Normal left ventricular ejection fraction of 76 percent. PHYLLIS STEELE M.D. Diagnostic/Nuclear Medicine Radiologist Transcribed: 7:59 p.m. [email or web address] jj/Dictated by: Phyllis Steele MD @ 10/18/2018 4:41:00 PM (Electronically Signed)
== END ==
LOC: JP.ACU 09:13
PROVIDERS: ATTEND Internal Medicine
DX: R06.00 Dyspnea, unspecified (principal)
CPT/HCPCS: 78452; 93017; A9500; J2785

== ENCOUNTER 2020-11-18 07:15 | Day surgery (SDC) | payer MEDICARE ==
[2020-11-18] MEDS ORDERED: Propofol 200 MG/20 ML SDV ONE (07:23)
[2020-11-18] MEDS ORDERED: fentaNYL 100 MCG/2 ML SDV ONE (07:23)
[2020-11-18] MEDS ORDERED: Dextrose 5%-Lactated Ringers 1,000 ML IV SCH (07:45)
[2020-11-18 11:33] VITALS: BP 152/82; PULSE 43
--- NOTE | 2020-11-23 17:58 | OR ---
DATE OF PROCEDURE: 11/18/2020 SURGEON: Manoj Wheat MD PREOPERATIVE DIAGNOSIS: History of iron-deficiency anemia. POSTOPERATIVE DIAGNOSIS: History of iron-deficiency anemia associated with antral gastritis and a small crater prepyloric ulcer. OPERATIVE PROCEDURE: Esophagogastroduodenoscopy with: 1. Biopsies of prepyloric ulcer. 2. Biopsies of antrum for CLOtest. ANESTHESIA: IV sedation. INDICATION FOR PROCEDURE: This is a 75-year-old female presenting with some iron-deficiency anemia, presently is on Protonix 40 mg daily along with iron and ascorbic acid. Plan is to proceed with upper GI endoscopy with biopsies as indicated. Potential risks including bleeding and perforation were discussed and the patient wishes to proceed. DETAILS OF PROCEDURE: The patient was taken to the operating room and placed in a left lateral decubitus position. IV sedation was administered, after which the upper GI endoscope was passed orally through the length of esophagus into the stomach with retroflexion view of the fundus, and thereafter through the pyloric channel into the proximal duodenum. Findings included normal hypopharynx, larynx, upper esophageal sphincter, and esophageal body. At the EG junction, no significant hiatal hernia was noted and no significant inflammation seen. There was no upward migration of columnar mucosa of EG junction. Within the stomach, the proximal stomach was unremarkable apart for some retained bile. In the antrum, there was generalized antral gastritis and a small roughly 5 mm crated ulcer in the prepyloric area. This was covered with fibrinous exudate but certainly would be a candidate for some recent bleeding episodes. The pyloric channel and proximal duodenum were unremarkable. At this point, biopsies obtained from the antrum and sent for CLOtest for H. pylori. Multiple biopsies around the prepyloric ulcer were also then obtained and sent for histologic evaluation. Minimal bleeding from the biopsy sites was seen and the procedure then concluded. At this point, we will allow the patient continue the Protonix dose 40 mg a day and Carafate 1 g q.i.d. to be taken in an empty stomach. She will be scheduled for repeat upper endoscopy to confirm ulcer healing in 4 to 5 weeks, and at that time, she would have a CBC and ferritin level obtained. Manoj Wheat MD /[id number]
== END 2020-11-18 11:51 | disposition home or self-care (01) ==
LOC: JP.SDS 07:15
PROVIDERS: ATTEND Surgery
DX: K25.3 Acute gastric ulcer without hemorrhage or perforation (principal); K29.50 Unspecified chronic gastritis without bleeding; D50.9 Iron deficiency anemia, unspecified; K29.70 Gastritis, unspecified, without bleeding; K31.89 Other diseases of stomach and duodenum; G47.33 Obstructive sleep apnea (adult) (pediatric)
CPT/HCPCS: 43239; 87081; J2704; J3010; J7121

== ENCOUNTER 2021-01-08 08:08 | Day surgery (SDC) | payer MEDICARE ==
[2021-01-08] MEDS ORDERED: Dextrose 5%-Lactated Ringers 1,000 ML IV SCH (08:45)
[2021-01-08 11:50] VITALS: BP 164/83; PULSE 42
--- NOTE | 2021-01-14 22:08 | OR ---
DATE OF PROCEDURE: 01/08/2021 SURGEON: Manoj Wheat MD PREOPERATIVE DIAGNOSIS: History of pre-pyloric gastric ulcer. POSTOPERATIVE DIAGNOSIS: Persistent antral gastritis with small gastric erosion, but generally healed pre-pyloric gastric ulcer. OPERATIVE PROCEDURE: Esophagogastroduodenoscopy with antral biopsies for CLOtest. ANESTHESIA: IV sedation. INDICATION FOR PROCEDURE: The patient is status post an upper endoscopy which showed a pre- pyloric gastric ulcer on 11/24/2019. She was begun on the double dose of proton pump inhibitors, IV Protonix 40 mg b.i.d. Since that time, she did try a course of Carafate, but was unable to tolerate that medication. The plan was to the followup endoscopy at this time to confirm healing of the gastric ulcer in a process so as to rule out this containing an underlying malignancy. Potential risks including bleeding and perforation were discussed, and the patient wishes to proceed. DETAILS OF PROCEDURE: The patient was taken to the operating room and placed in a left lateral decubitus position. IV sedation was administered, after which the upper GI endoscope was passed orally through the length of the esophagus into the stomach in the fundus and thereafter through the pyloric channel and into the proximal duodenum. Findings included normal hypopharynx, larynx, upper esophageal sphincter, along with esophageal body, EG junction, into the stomach. The proximal stomach was unremarkable. There was some redness and edema in the prepyloric area. There was a tiny erosion present but covered with fibrinous exudate, but the ulcer per se had entirely healed. The pyloric channel and proximal duodenum were unremarkable. At this point biopsies obtained from the antrum and sent for CLOtest for H pylori. Minimal bleeding from the biopsy site was seen, and the procedure then concluded. The patient will be recommended to stay on a b.i.d. Protonix at this point. If the CLOtest is positive, she should be treated with one of the standard anti H pylori regimens. In an effort perhaps deescalate the proton pump inhibitor, one might consider over time a second cytoprotective agent that might be more tolerable than the Carafate. The patient will be following up with Dr. Killian in roughly 3 weeks. Manoj Wheat MD /[id number]
== END 2021-01-08 12:04 | disposition home or self-care (01) ==
LOC: JP.SDS 08:08
PROVIDERS: ATTEND Surgery
DX: K29.60 Other gastritis without bleeding (principal); K25.9 Gastric ulcer, unspecified as acute or chronic, without hemorrhage or perforation; G47.33 Obstructive sleep apnea (adult) (pediatric); I12.9 Hypertensive chronic kidney disease with stage 1 through stage 4 chronic kidney disease, or unspecified chronic kidney disease; N18.9 Chronic kidney disease, unspecified
CPT/HCPCS: 36415; 43239; 82728; 85027; 87081; J7121

== ENCOUNTER 2022-03-09 12:56 | Inpatient (IN) | payer MEDICARE ==
[2022-03-09 14:17] LABS: TROPONIN I HIGH SENSITIVITY 92.1 pg/mL (<=60.3)
[2022-03-09] MEDS ORDERED: Aspirin 81 MG Tab.Chew PO ONE (14:42)
[2022-03-09] MEDS ORDERED: Heparin Sodium 5,000 Units/ML Vial IVPUSH ONE (14:42)
[2022-03-09] MEDS ORDERED: Sodium Chloride 0.9% 10 ML Syringe FLUSH PRN (14:42)
[2022-03-09] MEDS: Heparin Sodium/D5W 25,000 UNITS/500 ML BAG IV SCH (15:08)
[2022-03-09] MEDS ORDERED: Non-Formulary Medication 1 Each (Tizanidine [Zanaflex] 4 MG Tablet) PO PRN (17:52)
[2022-03-09] MEDS ORDERED: Rizatriptan 10 MG Tab.DIS PO PRN (17:52)
[2022-03-09] MEDS ORDERED: Losartan 50 MG Tab PO SCH (21:00)
[2022-03-09] MEDS ORDERED: Pantoprazole 40 MG Tab.CR PO SCH (21:00)
[2022-03-09] MEDS: Clobetasol 0.05% Crm 30 GM Tube TOP SCH (21:12)
[2022-03-09] MEDS: Losartan 50 MG Tab PO SCH (21:16)
[2022-03-09] MEDS: Pantoprazole 40 MG Tab.CR PO SCH (21:18)
[2022-03-09] MEDS ORDERED: Nitroglycerin/D5W 25 MG/250 ML BOTTLE IV SCH (21:45)
[2022-03-10] MEDS ORDERED: niCARdipine HCl 25 MG in Sodium Chloride 0.9% 240 ML IV SCH (01:00)
[2022-03-10] MEDS ORDERED: Dexamethasone 4 MG/ML SDV PO ONE (01:10)
[2022-03-10] MEDS ORDERED: diphenhydrAMINE 50 MG/ML SDV IVPUSH ONE (03:02)
[2022-03-10] MEDS ORDERED: Ondansetron 4 MG/2 ML SDV IVPUSH ONE (03:04)
[2022-03-10] MEDS ORDERED: tiZANidine 2 MG Tab PO PRN (07:06)
[2022-03-10] MEDS: Clobetasol 0.05% Crm 30 GM Tube TOP SCH (08:09)
[2022-03-10] MEDS ORDERED: HYDROmorphone 0.5 MG/0.5 ML Syringe IVPUSH ONE (08:19)
[2022-03-10] MEDS: Furosemide 20 MG Tab PO SCH (08:36)
[2022-03-10] MEDS ORDERED: Atenolol 25 MG Tab PO SCH (09:00)
[2022-03-10] MEDS ORDERED: Rosuvastatin 5 MG Tab PO SCH (09:00)
[2022-03-10] MEDS ORDERED: Hydrochlorothiazide 12.5 MG Cap PO SCH (09:00)
[2022-03-10] MEDS ORDERED: Non-Formulary Medication 1 Each (Calcium Carbonate/Vitamin D3 [Calcium 600mg-D3 400 Unit S PO SCH (09:00)
[2022-03-10] MEDS ORDERED: Pantoprazole 40 MG Tab.CR PO SCH (09:00)
[2022-03-10] MEDS ORDERED: Calcium Carbonate/Vitamin D3 1500 MG-400 Units Tab PO SCH (09:00)
[2022-03-10] MEDS ORDERED: LOSARTAN POTASSIUM PO SCH (09:00)
[2022-03-10] MEDS ORDERED: Ondansetron 4 MG/2 ML SDV IV PRN (11:22)
[2022-03-10] MEDS ORDERED: Albuterol 0.083% 2.5 MG/3 ML Neb Soln NEB PRN (11:22)
[2022-03-10] MEDS ORDERED: Sodium Chloride 0.9% 10 ML Syringe FLUSH PRN (11:22)
[2022-03-10] MEDS: Metoprolol Tartrate 25 MG Tab PO SCH ×2 (12:52→20:44)
[2022-03-10] MEDS: Heparin Sodium/D5W 25,000 UNITS/500 ML BAG IV SCH (16:58)
[2022-03-10] MEDS: Pantoprazole 40 MG Tab.CR PO SCH (20:36)
[2022-03-10] MEDS: Losartan 50 MG Tab PO SCH (20:36)
[2022-03-10] MEDS: Rosuvastatin 10 MG Tab PO SCH (20:36)
[2022-03-11 05:24] LABS: TROPONIN I HIGH SENSITIVITY 46.9 pg/mL (<=60.3)
[2022-03-11] MEDS: Metoprolol Tartrate 25 MG Tab PO SCH ×2 (08:59→20:40)
[2022-03-11] MEDS: Furosemide 20 MG Tab PO SCH (08:59)
[2022-03-11] MEDS: Rosuvastatin 10 MG Tab PO SCH (20:39)
[2022-03-11] MEDS: Losartan 50 MG Tab PO SCH (20:40)
[2022-03-11] MEDS: Docusate Sodium 100 MG Cap PO SCH (20:40)
[2022-03-11] MEDS: Pantoprazole 40 MG Tab.CR PO SCH (20:41)
[2022-03-12] MEDS: Furosemide 20 MG Tab PO SCH (09:03)
[2022-03-12] MEDS: Docusate Sodium 100 MG Cap PO SCH (09:03)
[2022-03-12] MEDS: Metoprolol Tartrate 25 MG Tab PO SCH (12:12)
== END 2022-03-12 16:42 | disposition home or self-care (01) | DRG 282 ==
LOC: JP.ED 12:56 → JP.ICU 03-10 10:21 → JP.MS 03-12 08:39 → JP.ICU 03-12 11:20
PROVIDERS: ADMIT Hospitalist; ATTEND Hospitalist
DX: I21.4 Non-ST elevation (NSTEMI) myocardial infarction (principal); I11.9 Hypertensive heart disease without heart failure; I10 Essential (primary) hypertension; H91.90 Unspecified hearing loss, unspecified ear; H54.7 Unspecified visual loss; G47.30 Sleep apnea, unspecified; K59.09 Other constipation; Z88.8 Allergy status to other drugs, medicaments and biological substances; K52.9 Noninfective gastroenteritis and colitis, unspecified; K21.9 Gastro-esophageal reflux disease without esophagitis; E66.9 Obesity, unspecified; K57.90 Diverticulosis of intestine, part unspecified, without perforation or abscess without bleeding; M19.90 Unspecified osteoarthritis, unspecified site; M54.2 Cervicalgia; G89.29 Other chronic pain; G43.909 Migraine, unspecified, not intractable, without status migrainosus; D64.9 Anemia, unspecified; Z86.19 Personal history of other infectious and parasitic diseases; Z98.49 Cataract extraction status, unspecified eye; Z79.82 Long term (current) use of aspirin; Z79.899 Other long term (current) drug therapy; Z88.6 Allergy status to analgesic agent; Z91.09 Other allergy status, other than to drugs and biological substances; Z88.5 Allergy status to narcotic agent; Z86.010 Personal history of colon polyps; Z87.440 Personal history of urinary (tract) infections; Z90.49 Acquired absence of other specified parts of digestive tract; Z96.651 Presence of right artificial knee joint; Z20.822 Contact with and (suspected) exposure to COVID-19
CPT/HCPCS: 36415 ×2; 71045 ×2; 80048; 83735; 84484 ×3; 85025; 85610; 85730 ×4; 93005 ×2; A9270 ×8; J1170; J1200; J1644 ×2; J2405; J3490 ×2; J7050; J8540; U0002; 93306

== ENCOUNTER 2022-09-05 08:18 | Emergency (ER) | payer MEDICARE ==
[2022-09-05 08:53] LABS: APPEARANCE,URINE TURBID (CLEAR); BILIRUBIN,URINE NEGATIVE (NEGATIVE); COLOR,URINE RED (YELLOW); GLUCOSE,URINE NEGATIVE (NEGATIVE); KETONES,URINE NEGATIVE (NEGATIVE); LEUKOCYTE ESTERASE,URINE SMALL (NEGATIVE); NITRITE,URINE NEGATIVE (NEGATIVE); PROTEIN,URINE >=300 mg/dL (NEGATIVE)
[2022-09-05 08:57] LABS: AMORPHOUS SEDIMENT,URINE NOT SEEN; BACTERIA,URINE MODERATE; EPITHELIAL CELLS,URINE NOT SEEN; MUCUS,URINE NOT SEEN; OCCULT BLOOD,URINE LARGE (NEGATIVE); RBC,URINE PACKED (0-5); WBC,URINE 20-30 (0-5)
== END 2022-09-05 09:39 | disposition home or self-care (01) ==
LOC: JP.ED 08:18
DX: N30.01 Acute cystitis with hematuria (principal); I10 Essential (primary) hypertension; Z88.5 Allergy status to narcotic agent; Z88.8 Allergy status to other drugs, medicaments and biological substances; Z91.048 Other nonmedicinal substance allergy status; Z79.899 Other long term (current) drug therapy
CPT/HCPCS: 81001; 87086; 87088; 87186; 99283